=== PATIENT | female | born 1980 | race Two or more races ===

== ENCOUNTER 2023-09-23 04:18 | Day surgery (SDC) | payer BC ==
[2023-09-16 12:58] VITALS: BMI 31.4
[2023-09-23] MEDS ORDERED: ONDANSETRON 4 MG/2 ML VIAL IVPUSH PRN (08:48)
[2023-09-23] MEDS ORDERED: oxyCODONE HCL 5 MG TABLET PO PRN (08:48)
[2023-09-23] MEDS ORDERED: LACTATED RINGERS SOLUTION 1,000 ML IV SCH (09:00)
[2023-09-23] MEDS ORDERED: DEXAMETHASONE SOD PHOSPHATE 4 MG/1 ML VIAL ONE (09:38)
[2023-09-23] MEDS ORDERED: METOCLOPRAMIDE HCL INJECTION 10 MG/2 ML VIAL ONE (09:38)
[2023-09-23] MEDS ORDERED: KETOROLAC TROMETHAMINE 30 MG/1 ML VIAL ONE (09:38)
[2023-09-23] MEDS ORDERED: ONDANSETRON 4 MG/2 ML VIAL ONE (09:38)
[2023-09-23] MEDS ORDERED: LIDOCAINE HCL/PF 2% SDV 5ML VIAL ONE (09:38)
[2023-09-23] MEDS ORDERED: PROPOFOL 20 ML ONE (09:43)
[2023-09-23] MEDS ORDERED: MIDAZOLAM HCL 2 MG/2 ML SINGLE DOSE VIAL ONE (09:44)
[2023-09-23] MEDS ORDERED: ACETAMINOPHEN INJECTION 100 ML IVPB ONE (10:40)
[2023-09-23] MEDS: ceFAZolin SODIUM 1 GM VIAL IVPB ONE (10:50)
[2023-09-23] MEDS ORDERED: ceFAZolin SODIUM 1 GM VIAL ONE (10:58)
[2023-09-23 12:51] VITALS: RESP 20
[2023-09-23 14:36] VITALS: BP 128/77; PULSE 73; TEMP 98.2
== END 2023-09-23 13:30 | disposition home or self-care (01) ==
LOC: JASU-SURG 04:18
PROVIDERS: ATTEND Obstetrics & Gynecology
PROC: 0U5B8ZZ Destruction of Endometrium, Via Natural or Artificial Opening Endoscopic (ICD-10-PCS; principal; 2023-09-23 10:00)
DX: N92.0 Excessive and frequent menstruation with regular cycle (principal)
CPT/HCPCS: 36415; 81025; 88305-TC; 94760; J0131